=== PATIENT | female | born 1935 | race Caucasian/White ===

== ENCOUNTER 2017-01-19 22:36 | Emergency (ER) | payer BC, MEDICARE | END 2017-01-20 02:30 | disposition home or self-care (01) | LOC: ER 22:36 | DX: N39.0 Urinary tract infection, site not specified (principal); E86.0 Dehydration; I48.91 Unspecified atrial fibrillation; I10 Essential (primary) hypertension; Z90.710 Acquired absence of both cervix and uterus; Z79.01 Long term (current) use of anticoagulants; Z79.84 Long term (current) use of oral hypoglycemic drugs; Z79.899 Other long term (current) drug therapy; Z91.040 Latex allergy status; Z86.73 Personal history of transient ischemic attack (TIA), and cerebral infarction without residual deficits | CPT/HCPCS: 36415; 96361; 96365; J0696 ==

== ENCOUNTER 2017-01-26 14:50 | Emergency (ER) | payer MEDICARE, BC | END 2017-01-27 00:50 | disposition short-term general hospital (02) | LOC: ER 14:50 | DX: F03.90 Unspecified dementia, unspecified severity, without behavioral disturbance, psychotic disturbance, mood disturbance, and anxiety (principal); E87.6 Hypokalemia; I10 Essential (primary) hypertension; R10.9 Unspecified abdominal pain; M54.9 Dorsalgia, unspecified; I48.91 Unspecified atrial fibrillation; E78.5 Hyperlipidemia, unspecified; Z90.710 Acquired absence of both cervix and uterus; Z86.73 Personal history of transient ischemic attack (TIA), and cerebral infarction without residual deficits; Z79.01 Long term (current) use of anticoagulants; Z79.84 Long term (current) use of oral hypoglycemic drugs; Z79.899 Other long term (current) drug therapy; Z91.040 Latex allergy status | CPT/HCPCS: 36415; 80307; 96365; 96375; 96376; G0480; J2060 ==